=== PATIENT | male | born 2000 | race Caucasian/White ===

== ENCOUNTER 2022-03-05 19:43 | Emergency (ER) | payer OTHER ==
[~2022-03-05] VITALS: Ht 172.7 cm; Wt 72.6 kg
[~2022-03-05 19:43] MED LIST: ACETAMINOPHEN500 MG PO; ONDA4ODT SL
== END 2022-03-05 20:40 | disposition home or self-care (01) ==
LOC: ER 19:43
DX: J06.9 Acute upper respiratory infection, unspecified (principal); Z79.899 Other long term (current) drug therapy
CPT/HCPCS: 99283

== ENCOUNTER 2022-04-17 14:55 | Emergency (ER) | payer OTHER ==
[~2022-04-17] VITALS: Ht 175.3 cm; Wt 65.8 kg
[2022-04-17] MEDS ORDERED: Norco 5-325 Ta1 EACH PO (17:10)
== END 2022-04-17 18:00 | disposition home or self-care (01) ==
LOC: ER 14:55
DX: S82.851A Displaced trimalleolar fracture of right lower leg, initial encounter for closed fracture (principal); W18.30XA Fall on same level, unspecified, initial encounter; Z79.899 Other long term (current) drug therapy
CPT/HCPCS: 27818; 73600; 73610; 96374-59; 99284-25; J1885; J3010

== ENCOUNTER 2022-04-21 14:06 | Day surgery (SDC) | payer OTHER ==
[~2022-04-21] VITALS: Ht 177.8 cm; Wt 76.4 kg
[~2022-04-21 14:06] MED LIST changes: +Norco 5-325 Ta1 EACH PO
--- NOTE | 2022-04-21 15:13 | NUR ---
Ambulatory in Day Surgery WITH USE OF CRUTCHES. Surgical site prepped with 2% Chlorhexidine cloth wipe. History, Chart, Medications and Allergies reviewed before start of procedure. Patient confirms NPO status and agrees with scheduled surgery. Pre-Op teaching done. Pt verbalizes understanding. Patient States Post-Procedure ride home has been arranged WITH [employer].
--- NOTE | 2022-04-21 18:27 | NUR ---
Discharge instructions reviewed with patient. Patient verbalizes understanding. Copy given to patient to take home. Dressing to procedure site clean, dry, intact with no visible drainage, swelling, erythema or bruising noted. Patient States Post-Procedure ride home has been arranged. Discharged via wheelchair to private car for ride home. NO ACUTE CHANGES PLEASANT MOVES TO W/C WITHOUT PROBLEM TAKES HIS CRUTCHES WITH HIM
== END 2022-04-21 22:43 | disposition home or self-care (01) ==
LOC: ORSCMMR 14:06 → ORD 15:00 → ORSCMMR 15:00
PROVIDERS: Podiatrist Foot & Ankle Surgery
PROC: 0QSJ04Z Reposition Right Fibula with Internal Fixation Device, Open Approach (ICD-10-PCS; principal; 2022-04-21 15:00)
PROC: 0QSG04Z Reposition Right Tibia with Internal Fixation Device, Open Approach (ICD-10-PCS; principal; 2022-04-21 15:00)
DX: S82.851A Displaced trimalleolar fracture of right lower leg, initial encounter for closed fracture (principal); W13.8XXA Fall from, out of or through other building or structure, initial encounter; F17.290 Nicotine dependence, other tobacco product, uncomplicated
CPT/HCPCS: A9270; C1713; J0690; J1100; J2250; J2405; J2704; J3010; J7120

== ENCOUNTER 2023-05-10 02:47 | Emergency (ER) | payer OTHER ==
[~2023-05-10] VITALS: Ht 175.3 cm; Wt 89.8 kg
[2023-05-10] MEDS ORDERED: CELE200 PO (03:01)
[2023-05-10] MEDS ORDERED: CEPH500 PO (04:24)
[2023-05-10 04:31] VITALS: BP 124/85
== END 2023-05-10 04:30 | disposition home or self-care (01) ==
LOC: ER 02:47
DX: S61.411A Laceration without foreign body of right hand, initial encounter (principal); W25.XXXA Contact with sharp glass, initial encounter
CPT/HCPCS: 73130; 99283-25